=== PATIENT | male | born 1935 | race Caucasian/White ===

== ENCOUNTER 2023-04-23 07:13 | Observation (INO) | payer OTHER ==
[2023-04-23 07:56] LABS: #Basophils 0.1 10x3/uL (0.0-0.2); #Eosinphils 0.1 10x3/uL (0.0-0.5); #Monocytes 1.8 10x3/uL (0.0-1.1); #Neutrophils 15.3 10x3/uL (1.5-8.4); %Basophils 0.3 % (0.0-2.0); %Eosinophils 0.3 % (0.0-6.0); %Monocytes 9.7 % (0.0-10.0); Hematocrit 31.1 % (38.8-50.0); Hemoglobin 10.1 g/dL (13.5-17.5); Mean Corpuscular HGB CONC 32.5 g/dL (32.0-36.0); Mean Corpuscular Hemoglobin 29.1 pg (27.0-33.0); Mean Corpuscular Volume 89.6 fl (81.2-95.1); Mean Platelet Volume 10.5 fl (7.4-10.4); Platelet Count 206 10x3/uL (150-450); RBC Distribution Width 13.1 % (11.5-14.5); Red Blood Cell (RBC) Count 3.47 10x6/uL (4.32-5.72); White Blood Cell (WBC) Count 18.9 10x3/uL (3.5-10.5)
[2023-04-23] MEDS ORDERED: Morphine 4 MG/ML VIAL ONE (07:57)
[2023-04-23] MEDS ORDERED: Ondansetron PF 4 MG/2 ML Vial ONE ×2 (07:58→15:35)
[2023-04-23] MEDS ORDERED: Piperacillin/Tazobactam 4.5 GM VIAL ONE (07:58)
[2023-04-23 08:12] LABS: ALT (SGPT) 15 U/L (8-55); AST (SGOT) 11 U/L (5-34); Albumin 3.3 g/dL (3.4-4.8); Alkaline Phosphatase 66 U/L (40-110); Anion Gap 11 mmol/L (10-20); BUN (Urea Nitrogen) 14 mg/dL (8.4-25.7); Calc. Creatinine Clearance 0 mL/min (70-130); Calcium 8.8 mg/dL (7.8-10.44); Carbon Dioxide 22 mmol/L (23-31); Chloride 108 mmol/L (98-107); Estimated GFR 86; Globulin 2.6 g/dL (2.4-3.5); Glucose 120 mg/dL (83-110); Lipase 6 U/L (8-78); Magnesium 1.9 mg/dL (1.6-2.6); Potassium 4.2 mmol/L (3.5-5.1); Protein, Total 5.9 g/dL (5.8-8.1); Sodium 137 mmol/L (136-145)
[2023-04-23 09:28] LABS: SARS-CoV-2 NAA Rapid Test Not Detected (NotDetected)
[2023-04-23] MEDS ORDERED: Ondansetron PF 4 MG/2 ML Vial IVP PRN (14:57)
[2023-04-23] MEDS ORDERED: PROPOFOL 20 ML ONE (15:34)
[2023-04-23] MEDS ORDERED: fentaNYL 50 mcg/mL 1 mL Vial ONE ×4 (15:34→18:37)
[2023-04-23] MEDS ORDERED: Rocuronium Bromide 10 MG/ML (10ML VIAL) ONE (15:35)
[2023-04-23] MEDS ORDERED: Bupivacaine PF 0.5% 30 ML VIAL ONE (15:35)
[2023-04-23] MEDS ORDERED: HYDROcodone/Acetaminophen 7.5/325 mg Tablet PO PRN (16:09)
[2023-04-23] MEDS ORDERED: Morphine 2 MG/ML VIAL SLOW IVP PRN (16:09)
[2023-04-23] MEDS ORDERED: PHENYLEPHRINE-NS 100 MCG/ML 10 ML SYRINGE ONE (16:37)
[2023-04-23] MEDS ORDERED: EPINEPHrine 1 MG/ML AMP ONE (16:56)
[2023-04-23] MEDS ORDERED: Glycopyrrolate 0.2 MG/ML 5 ML SYRINGE ONE (17:19)
[2023-04-23] MEDS ORDERED: SUGAMMADEX SODIUM 200 MG/2 ML VIAL ONE (17:54)
[2023-04-23] MEDS: Famotidine/PF 20 mg/2ml Vial SLOW IVP SCH (21:33)
[2023-04-24 01:20] VITALS: BMI 24.3
[2023-04-24 06:11] LABS: #Neutrophils 11.3 10x3/uL (1.5-8.4); %Basophils 0.2 % (0.0-2.0); %Eosinophils 0.1 % (0.0-6.0); %Monocytes 7.4 % (0.0-10.0); %Neutrophils 84.7 % (40.0-75.0); Anion Gap 10 mmol/L (10-20); BUN (Urea Nitrogen) 16 mg/dL (8.4-25.7); Calc. Creatinine Clearance 68 mL/min (70-130); Calcium 8.7 mg/dL (7.8-10.44); Carbon Dioxide 24 mmol/L (23-31); Chloride 110 mmol/L (98-107); Estimated GFR 85; Glucose 124 mg/dL (83-110); Hematocrit 29.9 % (38.8-50.0); Hemoglobin 9.7 g/dL (13.5-17.5); Mean Corpuscular HGB CONC 32.4 g/dL (32.0-36.0); Mean Corpuscular Hemoglobin 29.5 pg (27.0-33.0); Mean Corpuscular Volume 90.9 fl (81.2-95.1); Mean Platelet Volume 10.5 fl (7.4-10.4); Platelet Count 168 10x3/uL (150-450); Potassium 4.3 mmol/L (3.5-5.1); RBC Distribution Width 13.5 % (11.5-14.5); Red Blood Cell (RBC) Count 3.29 10x6/uL (4.32-5.72); Sodium 140 mmol/L (136-145); White Blood Cell (WBC) Count 13.3 10x3/uL (3.5-10.5)
[2023-04-24] MEDS: Sodium Chloride 0.9% 1,000 ML IV SCH ×2 (07:31→09:51)
[2023-04-24] MEDS: Famotidine/PF 20 mg/2ml Vial SLOW IVP SCH (09:30)
[2023-04-24 11:33] VITALS: BP 122/78; TEMP 98.9
== END 2023-04-24 11:35 | disposition home or self-care (01) ==
LOC: CSHERS 07:13 → EEVIPCON 15:02 → CSHERHOLD 15:02 → CSHTELE 22:08
PROVIDERS: ADMIT Family Medicine; ATTEND Nurse Practitioner Family
PROC: 0FT44ZZ Resection of Gallbladder, Percutaneous Endoscopic Approach (ICD-10-PCS; principal; 2023-04-23)
DX: K80.12 Calculus of gallbladder with acute and chronic cholecystitis without obstruction (principal); K82.A1 Gangrene of gallbladder in cholecystitis; K82.8 Other specified diseases of gallbladder; D72.829 Elevated white blood cell count, unspecified; I10 Essential (primary) hypertension; E78.5 Hyperlipidemia, unspecified; K21.9 Gastro-esophageal reflux disease without esophagitis; Z88.8 Allergy status to other drugs, medicaments and biological substances; J45.909 Unspecified asthma, uncomplicated; E03.9 Hypothyroidism, unspecified; E87.6 Hypokalemia; Z87.891 Personal history of nicotine dependence; Z98.890 Other specified postprocedural states; Z88.5 Allergy status to narcotic agent; Z79.82 Long term (current) use of aspirin; Z79.890 Hormone replacement therapy; Z79.899 Other long term (current) drug therapy
CPT/HCPCS: 36415; 76705; 80048; 80053; 83690; 83735; 85025; 88304; 93005; 96361; 96365; 96375; C1889; G0378; J0171; J2270; J2272; J2405; J2543; J2704; J3010; J7050; S0020; S0028